=== PATIENT | male | born 1975 | race Caucasian/White ===

== ENCOUNTER 2020-05-19 11:54 | Emergency (ER) | payer MEDICARE, OTHER ==
[~2020-05-19] VITALS: Ht 182.9 cm; Wt 104.3 kg
[2020-05-19] MEDS: HYDROMORPHONE 1 MG/1 ML DISP.SYRIN IM ONE (12:18)
[2020-05-19] MEDS: ONDANSETRON 4 MG/2 ML VIAL IM ONE (12:18)
[2020-05-19] MEDS ORDERED: HYDROMORPHONE 2 MG/1 ML DISP.SYRIN ONE (12:20)
[2020-05-19] MEDS ORDERED: ONDANSETRON 4 MG/2 ML VIAL ONE (12:21)
[2020-05-19 12:25] VITALS: BP 121/79
--- NOTE | 2020-05-19 12:25 | NUR ---
Patient discharged to home in stable condition. Written and verbal after care instructions given. Patient verbalizes understanding of instructions. Stressed follow up or return to ER for worsening s/s. Patient is able to ambulate with very steady gait, without any assistance.
== END 2020-05-19 12:26 | disposition home or self-care (01) ==
LOC: ER 11:54
DX: G89.29 Other chronic pain (principal); M54.5 Low back pain
CPT/HCPCS: A4663; J1170; J2405

== ENCOUNTER 2020-08-10 16:40 | Emergency (ER) | payer MEDICARE, OTHER ==
[~2020-08-10] VITALS: Ht 182.9 cm; Wt 104.3 kg
[2020-08-10] MEDS ORDERED: OXYCODONE HCL 5 MG TABLET PO ONE (17:00)
[2020-08-10] MEDS ORDERED: METHOCARBAMOL 500 MG TABLET PO ONE (17:00)
[2020-08-10] MEDS ORDERED: KETOROLAC TROMETHAMINE 30 MG INJ IM ONE (17:00)
[2020-08-10] MEDS ORDERED: KETOROLAC TROMETHAMINE 30 MG INJ ONE (17:08)
[2020-08-10] MEDS ORDERED: OXYCODONE HCL 5 MG TABLET ONE (17:10)
--- NOTE | 2020-08-10 17:37 | NUR ---
PT EXAMINED AND EVALUATED BY DR MO. MEDICATIONS ADMINISTERED PER MD ORDER.
[2020-08-10 19:06] VITALS: BP 148/90
== END 2020-08-10 19:10 | disposition home or self-care (01) ==
LOC: ER 16:40
DX: G89.29 Other chronic pain (principal); M54.40 Lumbago with sciatica, unspecified side
CPT/HCPCS: 96372; 99283; J1885; A4663

== ENCOUNTER 2021-01-11 19:32 | Emergency (ER) | payer MEDICARE, OTHER ==
[~2021-01-11] VITALS: Ht 182.9 cm; Wt 111.1 kg
--- NOTE | 2021-01-11 20:17 | NUR ---
Patient discharged to home in stable condition. Written and verbal after care instructions given. Patient verbalizes understanding of instructions. Stressed follow up or return to ER for worsening s/s. Patient ambulated with stable gait.
[2021-01-11 20:18] VITALS: BP 149/105
[2021-01-12] MEDS ORDERED: BUSP10TA3 PO (16:10)
[2021-01-12] MEDS ORDERED: GABA800T11 PO (16:10)
== END 2021-01-11 20:18 | disposition home or self-care (01) ==
LOC: ER 19:34
DX: F41.9 Anxiety disorder, unspecified (principal); G89.29 Other chronic pain; M54.40 Lumbago with sciatica, unspecified side; Z76.0 Encounter for issue of repeat prescription
CPT/HCPCS: A4663

== ENCOUNTER 2021-01-12 14:52 | Emergency (ER) | payer MEDICARE, OTHER ==
[~2021-01-12] VITALS: Ht 182.9 cm; Wt 111.1 kg
[2021-01-12] MEDS ORDERED: BUSP10TA3 PO (16:10)
[2021-01-12] MEDS ORDERED: GABA800T11 PO (16:10)
--- NOTE | 2021-01-12 16:14 | NUR ---
Patient discharged to home in stable condition. Written and verbal after care instructions given. Patient verbalizes understanding of instructions. Stressed follow up or return to ER for worsening s/s.
== END 2021-01-12 16:15 | disposition home or self-care (01) ==
LOC: ER 14:52
DX: F41.9 Anxiety disorder, unspecified (principal); Z76.0 Encounter for issue of repeat prescription; G89.29 Other chronic pain; M54.9 Dorsalgia, unspecified
CPT/HCPCS: A4663

== ENCOUNTER 2021-07-05 09:53 | Emergency (ER) | payer MEDICARE, OTHER ==
[~2021-07-05] VITALS: Ht 177.8 cm; Wt 101.2 kg
[~2021-07-05 09:53] MED LIST: BUSP10TA3 PO; GABA800T11 PO
[2021-07-05] MEDS ORDERED: DIAZ10TA4 PO (10:07)
[2021-07-05] MEDS ORDERED: HYDROCODONE/APAP 5-325MG TABLET PO ONE (11:00)
[2021-07-05] MEDS ORDERED: HYDROCODONE/APAP 5-325MG TABLET ONE (11:09)
[2021-07-05 11:16] VITALS: BP 155/103
--- NOTE | 2021-07-05 11:16 | NUR ---
Pt denies any adverse event after taking medication.
== END 2021-07-05 11:18 | disposition home or self-care (01) ==
LOC: ER 09:55
DX: M54.9 Dorsalgia, unspecified (principal); G89.29 Other chronic pain; Z96.82 Presence of neurostimulator; F41.9 Anxiety disorder, unspecified; Z79.899 Other long term (current) drug therapy
CPT/HCPCS: A4663